=== PATIENT | male | born 2000 | race Caucasian/White ===

== ENCOUNTER 2019-02-02 15:46 | Emergency (ER) | payer BC ==
[2019-02-02 16:13] VITALS: BP 129/57
--- NOTE | 2019-02-02 16:19 | UC ---
[facility] HPI - HPI Summary HPI Summary: Has had three dys of worsening L lower jaw/tooth pain radiating to his L ear. - History of Current Complaint Chief Complaint: UCGeneralIllness Stated Complaint: ORAL ISSUE/JAW/EAR Time Seen by Provider: 02/02/19 16:15 Hx Obtained From: Patient Pain Intensity: 7 Pain Scale Used: 0-10 Numeric Aggravating Factor(s): Chewing Alleviating Factor(s): Nothing - Allergies/Home Medications Allergies/Adverse Reactions: Allergies Allergy/AdvReac Type Severity Reaction Status Date / Time amoxicillin [From Augmentin] AdvReac Intermediate Vomiting Verified 02/02/19 16: 08 cefprozil [From Cefzil] AdvReac Intermediate Vomiting Verified 02/02/19 16:08 clavulanic acid AdvReac Intermediate Vomiting Verified 02/02/19 16:08 [From Augmentin] PMH/Surg Hx/FS Hx/Imm Hx - Additional Past Medical History Additional PMH: no chronic conditions Previously Healthy: Yes - Surgical History Surgical History: None - Social History Alcohol Use: None Substance Use Type: None Smoking Status (MU): Never Smoked Tobacco - Immunization History Most Recent Influenza Vaccination: 2012 Vaccination Up to Date: Yes Review of Systems All Other Systems Reviewed And Are Negative: Yes Constitutional: Negative: Fever Skin: Negative: Rash ENT: Positive: Dental Pain. Negative: Sore Throat, Sinus Congestion Respiratory: Positive: Negative Cardiovascular: Positive: Negative Physical Exam Triage Information Reviewed: Yes Appearance: Well-Appearing Vital Signs: Initial Vital Signs Temp 99.0 F 02/02/19 16:09 Pulse 54 02/02/19 16:09 Resp 15 02/02/19 16:09 BP 129/57 02/02/19 16:09 Pulse Ox 99 02/02/19 16:09 Vital Signs Reviewed: Yes Eyes: Positive: Conjunctiva Clear ENT: Positive: Pharynx normal, Uvula midline Dental: Positive: Dental Fracture @ - L ? wisdom tooth/molar vs. other tooth abnormality. No gum swelling or bleeding or pain. Neck: Positive: Supple, Nontender, No Lymphadenopathy Dental Complaint Course/Dx - Course Course Of Treatment: L post. molar w/ crack. No hx of trauma and does have a dentist on board who told him to contact oral surgery. Found a local site and gave pt. contact info. for now soft foods and ibu for pain. vitals good. - Differential Dx/Diagnosis Differential Diagnosis/Dx: Dental Abscess, Dental Caries, Fractured Tooth Provider Diagnosis: Nontraumatic broken or cracked tooth Discharge - Sign-Out/Discharge Documenting (check all that apply): Patient Departure All imaging exams completed and their final reports reviewed: No Studies - Discharge Plan Condition: Good Disposition: HOME Patient Education Materials: Toothache (ED) Referrals: Bruce Holcomb DO [Primary Care Provider] - Additional Instructions: I strongly recommend you keep your appt w/ the ORAL SURGEON: [facility] [address] [facility] [phone] - Billing Disposition and Condition Condition: GOOD Disposition: Home
== END 2019-02-02 16:34 | disposition home or self-care (01) ==
LOC: UCCORT 15:46
DX: M84.48XA Pathological fracture, other site, initial encounter for fracture (principal); Z88.0 Allergy status to penicillin; Z88.8 Allergy status to other drugs, medicaments and biological substances
CPT/HCPCS: 99201; G0463